=== PATIENT | female | born 1935 | race Caucasian/White ===

== ENCOUNTER 2021-01-06 07:24 | Emergency (ER) | payer OTHER ==
--- OUTSIDE RECORDS SUMMARY | 2021-01-06 07:27 | XMS REPORT | Continuity of Care Document ---
:1935 Author Organization [facility] t Address [address] [place] [address] Care Team Providers Name Role Phone Debora Nixon Attending Clinician Unavailable MD COLT L Attending Clinician Unavailable COLT Attending Clinician Unavailable Torrie BAGLEY, P Attending Clinician Debora Nixon Admitting Clinician Unavailable Physician, Primary or Family Admitting Clinician Unavailama GREGORY MD L Admitting Clinician Unavailable Payers Payer Name Policy Type Policy Number Effective Date Expiration Date S ource Problems Condition Condition Condition Status Onset Resolution Last Treating Co mments Source Name Details Category Date Date Treatment Clinician Date No known No known Disease Unive rs active active ity of problems problems [facility] Allergies, Adverse Reactions, Alerts Allergy Allergy Status Severity Reaction(s) Onset Inactive Treating Comm ents Source Name Type Date Date Clinician No Known DA Active U [facility] Allergie 08-28 Clear s 00:00: Bhagat 00 [facility] No Known DA Active U [facility] Allergie 08-28 Clear s 00:00: Bhagat [address] [place] [address] Codeine Propensi Active Anxiety 2015-02 Univer s ty to 0-20 ity of adverse 00:00: [place] reaction [address] [place] [address] No Known DA Active U [facility] Contrast 3-22 [place] All[facility]ie 00:[facility]: d [facility] No Known DA Active U [facility] Drug - [place] Allergie 00:00: d [facility] No Known DA Active U [facility] Food 05-06 [place] Allergie 00:00: d [facility] No Known DA Active U [facility] Other 05-06 [place] Allergie 00:00: d [facility] Center Social History Social Habit Start Date Stop Date Quantity Comments Source [facility] Status Start Date Stop Date Source Unknown [facility] Medications Ordered Filled Start Stop Current Ordering Indication Dosage Frequency Signature Comments Components Source Medication Medication Date Date Medication? Clinician (SIG) Name Name Sulfacetami Yes [id number] Apply to Univers de 9-19 area(s) ity of Sodium-Sulf 00:00: once daily [place] ur 00 as needed Medical (ROSANIL) (facial Branch 10-5 % redness). (w/w) cleanser metroNIDAZO Yes [id number] Apply to Univers LE 0.75 % 9-19 area(s) at ity of cream 00:00: bedtime. [address] triamcinolo Yes [id number] Apply to Univers ne 9-19 area(s) 2 ity of acetonide 00:00: (two) [place] 0.1 % cream 00 times Medical daily as Branch needed for Dermatitis /Rash or Itching. Sulfacetami Yes [id number] Apply to Univers de 9-19 area(s) ity of Sodium-Sulf 00:00: once daily [place] ur 00 as needed Medical (ROSANIL) (facial Branch 10-5 % redness). (w/w) cleanser metroNIDAZO Yes [id number] Apply to Univers LE 0.75 % 9-19 area(s) at ity of cream 00:00: bedtime. [address] triamcinolo Yes [id number] Apply to Univers ne 9-19 area(s) 2 ity of acetonide 00:00: (two) [place] 0.1 % cream 00 times Medical daily as Branch needed for Dermatitis /Rash or Itching. losartan 50 Yes 50mg Take 50 mg Univers mg tablet 2-13 by mouth. ity o f 22:05: [address] losartan 50 2019-0 Yes 50mg Take 50 mg Univers mg tablet 2-13 by mouth. ity o f 22:05: [address] losartan 50 2018-0 Yes 50mg Take 50 mg Univers mg tablet 2-13 by mouth. ity o f 22:05: [address] nitrofurant 2018-0 Yes 100mg Take 100 U nivers oin macro 2-13 mg by ity of 50 mg 22:05: mouth. [address] Branch nitrofurant Yes 100mg Take 100 U nivers oin macro 2-13 mg by ity of 50 mg 22:05: mouth. [place] capsule [address] [place] [address] nitrofurant 0 Yes 100mg Take 100 U nivers oin macro 2-13 mg by ity of 50 mg 22:05: mouth. [address] pravastatin 0 Yes Univer s 20 mg 2-04 ity of tablet 00:00: [address] pravastatin 2019-0 Yes Univer s 20 mg 2-04 ity of tablet 00:00: [address] pravastatin 2019-0 Yes Univer s 20 mg 2-04 ity of tablet 00:00: [address] ELIQUIS 5 2019-0 Yes Univers mg tablet 1-18 ity of 00:00: [address] ELIQUIS 5 2019-0 Yes Univers mg tablet 1-18 ity of 00:00: [address] ELIQUIS 5 2019-0 Yes Univers mg tablet 1-18 ity of 00:00: [address] Branch sulfamethox 2018- Yes Univer s azole-trime 2-21 ity of thoprim 00:00: [place] 800-160 mg 00 Medical per tablet Branch sulfamethox 2017- Yes Univer s azole-trime 2-21 ity of thoprim 00:00: [place] 800-160 mg 00 Medical per tablet Branch sulfamethox 2017- Yes Univer s azole-trime 2-21 ity of thoprim 00:00: [place] 800-160 mg 00 Medical per tablet Branch losartan 2017- Yes Univers 100 mg 2-15 ity of tablet 00:00: [address] Branch losartan 2017- Yes Univers 100 mg 2-15 ity of tablet 00:00: [place] [address] Medical Branch losartan 2017- Yes Univers 100 mg 2-15 ity of tablet 00:00: Medical Branch propranolol 2017-02 Yes Univer s 60 mg 24 hr 1-26 ity of capsule 00:00: Medical Branch propranolol 2017-02 Yes Univer s 60 mg 24 hr 1-26 ity of capsule 00:00: Medical Branch propranolol 2017-02 Yes Univer s 60 mg 24 hr 1-26 ity of capsule 00:00: Medical Branch conjugated 2017-02 Yes .5g Insert 0.5 U nivers estrogens 1-19 g into ity of 0.625 00:00: vagina. [place] mg/gram 00 Medical vaginal Branch cream conjugated 2017-02 Yes .5g Insert 0.5 U nivers estrogens 1-19 g into ity of 0.625 00:00: vagina. [place] mg/gram Medical vaginal Branch cream conjugated 2017-02 Yes .5g Insert 0.5 U nivers estrogens 1-19 g into ity of 0.625 00:00: vagina. [place] mg/gram Medical vaginal Branch cream Immunizations Ordered Immunization Filled Immunization Date Status Commen ts Source Name Name [place] COVID-19 Moderna COVID-19 2020-11-05 Completed Vaccine Vaccine 00:00:00 Moderna COVID-19 Moderna COVID-19 2020-04-27 Completed Vaccine Vaccine 00:00:00 Procedures This patient has no known procedures. Encounters Start End Encounter Admission Attending Care Care Encounter Source Date/Time Date/Time Type Type Clinicians Facility Department ID 2020-11-05 2020-11-05 Outpatient GCCOVIDV GCCOVIDV [id number] GCCOVID 00:00:00 00:00:00 V 2020-08-05 2020-08-08 Inpatient EM JOSSY NixonMN TELE 37 [facility] 18:09:00 16:30:00 Reji 0621 [facility] 2020-08-06 2020-08-06 Outpatient XAVIER Nixon LABO [id number] [facility] 01:09:00 01:09:00 Reji 0622 [facility] 2020-04-27 2020-04-27 Outpatient GCCOVIDV GCCOVIDV [id number] [facility] 00:00:00 00:00:00 V 2020-04-10 2020-04-10 Emergency [facility] [id number] [place] 00:00:00 00:00:[address] 2018-11-03 2018-11-03 Office Torrie [facility] [id number] 10:30:17 11:25:16 Visit Shawn Alvarado SPECIALTY [id number] [place] [id number] [place] [id number] 2018-11-03 2018-11-03 Office Torrie [facility] [id number] [facility] 10:30:17 11:25:16 Visit Shawn P SPECIALTY [id number] ity of [place] 4.2.7.2.686 Yung s [place] [id number] [place] [address] Branch 2018-10-16 2018-10-16 [place] Torrie [facility] [id number] [facility] 00:00:00 00:00:00 [facility] SPECIALTY [id number] ity of [place] [id number] [place] [id number] [address] Results Test Description Test Time Test Comments Results Result Comments Source AMMONIA 2020-08-05 20:21:00 Test Item Value Reference Range Interpretation Comme nts AMMONIA (test code = AMM) <10.0 MCMOL/L 11.0-32.0 L UA RFLX MICR CULT IF [id number] 18:23:00 Test Item Value Reference Range Interpretation Comments UA GLUCOSE DIPSTICK NORMAL mg/dl NORMAL (test code = DGLUU) UA BILIRUBIN DIPSTICK NEGATIVE mg/dL NEGATIVE (test code = BILU) UA KETONE DIPSTICK NEGATIVE mg/dl NEGATIVE (test code = KETU) UA SPECIFIC GRAVITY 1.020 1.000-1.030 (test code = SGU) UA BLOOD DIPSTICK 25 Ab/micL NEGATIVE A (test code = CYDNEY) Ab/micL UA PH DIPSTICK (test 6.5 5.0-9.0 code = GASPER) UA PROTEIN DIPSTICK NEGATIVE mg/dl NEGATIVE (test code = PROU) UA UROBILINIOGEN NORMAL mg/dl NORMAL DIPSTICK (test code = URO) UA NITRITE DIPSTICK POSITIVE NEGATIVE A (test code = WILLIE) UA LEUKOCYTE ESTERASE 500 Aura/micL NEGATIVE A DIPSTICK (test code = Aura/micL LEUU) UA WBC (test code = >100 WBC/HPF NONE A WBCU) UA SQUAMOUS CELLS >10 #/hpf (test code = SQU) UA CULTURE NEEDED? YES,WBC>10 & Culture Chk Criteria met, (test code = UACULT) EPI<=15 Criteria Uri ne Culture in-process. Indication for culture: RiskForSepsis-no oth srcSpecimen Description: CLEAN CATCHCoronavirus 2019 nCoV [id number] 18:22:00 Test Item Value Reference Range Interpretation Comments Coronavirus 2019 Negative NEGATIVE Negative re sults should be nCoV Bedside (test treated a s presumptive and code = ifinconsistent with [id number]) clinical signs and symptoms, or ne cessaryfor patient managem ent, should be tested with an alternativemole cular assay. Negative result s do not preclude [id number] tion and should not be u sed as the sole basis forp atient management deci sions. Negative result s should beconsidered in the context of a patient's recent exposures,histo ry, presence of clinical sig ns and symptoms consis tentwith COVID-19. DRUGS OF ABUSE SCREEN [id number] 18:20:00 Test Item Value Reference Interpretation Comments Range URN COCAINE (test NEGATIVE NEGATIVE Cocaine cu t-off code = COCAURN) concentratio n: 300 ng/mL URN CANNABINOIDS NEGATIVE NEGATIVE Cannabinoid s cut-off (test code = concentration: 50 ng/mL CANNABURN) URN AMPHETAMINE NEGATIVE NEGATIVE Amphetamine cut-off (test code = concentration: 1000 ng/mL AMPHETURN) URN BARBITURATE NEGATIVE NEGATIVE Barbiturate cut-off (test code = concentration: 200 ng/mL BARBITURN) URN BENZODIAZEPINE POSITIVE NEGATIVE A UNCONFIRM ED INITIAL (test code = SCREENING ONLY; SUGGEST BENZOURN) ADDITIONALCONFI RMATORY TESTING.Benzodi azepine cut-off concent ration: 200 ng/mL URN OPIATES (test NEGATIVE NEGATIVE Opiates cu t-off code = OPIATURN) concentrati on: 2000 ng/mL URN PHENCYCLIDINE NEGATIVE NEGATIVE Phencyclid ine(PCP) cut-off (PCP) (test code = concentra tion: 25 ng/ml PHENCURN) URN METHADONE (test NEGATIVE NEGATIVE Methadon e cut-off code = METHAURN) concentrati on: 300 ng/mL BASIC METABOLIC [id number] 18:19:00 Test Item Value Reference Range Interpretation Comments SODIUM (test code = NA) 141 mmol/l 134.0-147.0 N POTASSIUM (test code = K) 4.6 mmol/L 3.6-5.2 N CHLORIDE (test code = CL) 108 mmol/l 98.0-107.0 H CARBON DIOXIDE (test code = CO2) 27.7 mmol/l 21.0-33.0 N ANION GAP (test code = GAP) 9.9 0-20 N GLUCOSE (test code = GLU) 86 mg/dl 70.0-110.0 N BLOOD UREA NITROGEN (test code = 20 mg/dl 7.0-18.0 H BUN) CREATININE (test code = CREAT) 0.77 mg/dL 0.60-1.30 N GFR NON BLACK (test code = 76 mL/min 70-80 N GFRNONBLACK) GFR BLACK (test code = GFRBLACK) 91 mL/min 85-97 N CALCIUM (test code = CA) 8.0 mg/dl 8.0-10.5 N ABOUT 5 ML OF BLOOD IN EACH OF THE TWO BOTTLES.RIGHT HANDHEPATIC FUNCTION PANEL [id number] 18:19:00 Test Item Value Reference Range Interpretation Comments TOTAL PROTEIN (test code = PROT) 6.2 gm/dL 6.4-8.2 L ALBUMIN (test code = ALB) 2.9 gm/dl 3.2-4.7 L BILIRUBIN TOTAL (test code = BILT) 0.4 mg/dl 0.0-1.0 N BILIRUBIN DIRECT (test code = 0.1 mg/dl 0.0-0.3 N BILD) SGOT/AST (test code = AST) 20 Units/L 15-37 N SGPT/ALT (test code = ALT) 17 Units/L 12.0-78.0 N ALKALINE PHOSPHATASE TOTAL (test 90 Units/L 50.0-136.0 N code = ALKP) ABOUT 5 ML OF BLOOD IN EACH OF THE TWO BOTTLES.RIGHT HANDTHYROID STIMULATING [id number] 18:19:00 Test Item Value Reference Range Interpretation Comments THYROID STIMULATING 0.76 IU/ML 0.47-5.01 N Result i s in HORMONE (test code = Interna tional TSH) Units/millilite r ABOUT 5 ML OF BLOOD IN EACH OF THE TWO BOTTLES.RIGHT [id number] 18:19:00 Test Item Value Reference Range Interpretation Comments ACETAMINOPHEN (test <2.0 mcg/ml 10.0-30.0 L Result i s in code = ACET) Microgram per milliliter. ABOUT 5 ML OF BLOOD IN EACH OF THE TWO BOTTLES.RIGHT [id number] 18:19:00 Test Item Value Reference Range Interpretation Comments SALICYLATE (test code = TYRA) 0.7 mg/dl 2.8-20.0 L ABOUT 5 ML OF BLOOD IN EACH OF THE TWO BOTTLES.RIGHT [id number] 18:19:00 Test Item Value Reference Range Interpretation Comments ALCOHOL (test code 0.00 gm/dL 0.00-0.00 N ETHYL ALC OHOL VALUES - = ALC) INTERPRETATION: 0.050 GM/DL - NOT INT OXICATED 0.100 GM/DL - INTOXICATED 0.3 50-0.450 GM/DL - SEVEREL Y INTOXICATED 0.5 50 GM/DL- FATAL INTOXICAT ION ABOUT 5 ML OF BLOOD IN EACH OF THE TWO BOTTLES.RIGHT HANDUA RFLX MICR CULT IF [id number] 18:11:00 Test Item Value Reference Range Interpretation Comments UA GLUCOSE DIPSTICK (test NORMAL mg/dl NORMAL code = DGLUU) UA BILIRUBIN DIPSTICK NEGATIVE mg/dL NEGATIVE (test code = BILU) UA KETONE DIPSTICK (test NEGATIVE mg/dl NEGATIVE code = KETU) UA SPECIFIC GRAVITY (test 1.020 1.000-1.030 code = SGU) UA BLOOD DIPSTICK (test 25 Ab/micL Ab/micL NEGATIVE A code = CYDNEY) UA PH DIPSTICK (test code 6.5 5.0-9.0 = GASPER) UA PROTEIN DIPSTICK (test NEGATIVE mg/dl NEGATIVE code = PROU) UA UROBILINIOGEN DIPSTICK NORMAL mg/dl NORMAL (test code = URO) UA NITRITE DIPSTICK (test POSITIVE NEGATIVE A code = WILLIE) UA LEUKOCYTE ESTERASE 500 Aura/micL NEGATIVE A DIPSTICK (test code = Aura/micL LEUU) UA WBC (test code = WBCU) WBC/HPF NONE UA CULTURE NEEDED? (test Criteria Culture Chk code = UACULT) Indication for culture: RiskForSepsis-no oth srcSpecimen Description: CLEAN CATCHPROTHROMBIN [id number] 18:04:00 Test Item Value Reference Range Interpretation Comments PROTHROMBIN TIME 17.1 SECONDS 9.9-12.8 H PATIENT (test code = PTP) INTERNATIONAL NORMAL 1.4 0.89-1.14 H THE INR IS TO BE USED RATIO (test code = ONLY FOR MONITORING INR) ORAL ANTICOAGULANTTH ERAPY. THE FOLLOWING A RE SUGGESTED RANGE S FROM [facility]:DARIEN CATION INR VALUEPROPHYLAXI S OF VENOUS THROMBOS IS (ORTHOPEDIC LUIS STAN) 2.0 - 3.0PROP HYLAXIS OF VENOUS THROM BOSIS (OTHER THAN HIG H-RISK SURGERY) 2.0 - 3.0TRE ATMENT OF DEEP VEIN THROMBOSIS OR PULMONARY EMBOL ISM 2.0 - 3.0PREV ENTION OF SYSTEMIC EMB OLISM TISSUE HEART VA LVES 2.0 - 3.0 AC KARSTEN MYOCARDIAL INFA RCTION (TO PREVENT SYSTEMIC EMBOLI SM) 2.0 - 3.0 ACUTE MYOCARDIA L INFARCTION (TO PREVENT RECURRE NT INFARCT) 2.5 - 3.0 VALV ULAR HEART DISEASE 2.0 - 3.0 ATRIAL FIBRILATION 2.0 - 3.0BILEAFLET MECHANICAL VALV E IN AORTIC POSITION 2.0 - 3.0MECHAN ICAL PROSTHETIC VALV ES (HIGH RISK) 2.5 - 3.5PRESEN CE OF LUPUS ANTICOAGU LANT OR ANTIPHOSPHOLIP ID ANTIBODIES 2.5 - 3 .5 Specimen comments: .ABOUT 5 ML OF BLOOD IN EACH OF THE TWO BOTTLES.RIGHT HAND THROMBOPLASTIN TIME [id number] 18:04:00 Test Item Value Reference Range Interpretation Comments THROMBOPLASTIN TIME 30.20 SECONDS 25.86-36.07 N [place] d Lab PARTIAL (test code = Therape utic Range - PTT) APTT of 55.8-85 .4 secondscorrelat es with plasma heparin concentration o f 0.2-0.4 u/mL Ne w range effective - Specimen comments: .ABOUT 5 ML OF BLOOD IN EACH OF THE TWO BOTTLES.RIGHT HAND HEPATIC FUNCTION PANEL [id number] 18:02:00 Test Item Value Reference Range Interpretation Comments TOTAL PROTEIN (test code = PROT) gm/dL 6.4-8.2 ALBUMIN (test code = ALB) gm/dl 3.2-4.7 BILIRUBIN TOTAL (test code = BILT) mg/dl 0.0-1.0 BILIRUBIN DIRECT (test code = BILD) mg/dl 0.0-0.3 SGOT/AST (test code = AST) Units/L 15-37 SGPT/ALT (test code = ALT) Units/L 12.0-78.0 ALKALINE PHOSPHATASE TOTAL (test Units/L 50.0-136.0 code = ALKP) ABOUT 5 ML OF BLOOD IN EACH OF THE TWO BOTTLES.RIGHT HANDTHYROID STIMULATING [id number] 18:02:00 Test Item Value Reference Range Interpretation Comments THYROID STIMULATING HORMONE (test code IU/ML 0.47-5.01 = TSH) ABOUT 5 ML OF BLOOD IN EACH OF THE TWO BOTTLES.RIGHT [id number] 18:02:00 Test Item Value Reference Range Interpretation Comments ACETAMINOPHEN (test code = ACET) mcg/ml 10.0-30.0 ABOUT 5 ML OF BLOOD IN EACH OF THE TWO BOTTLES.RIGHT [id number] 18:02:00 Test Item Value Reference Range Interpretation Comments SALICYLATE (test code = TYRA) mg/dl 2.8-20.0 ABOUT 5 ML OF BLOOD IN EACH OF THE TWO BOTTLES.RIGHT [id number] 18:02:00 Test Item Value Reference Range Interpretation Comments ALCOHOL (test code = ALC) gm/dL 0.00-0.00 ABOUT 5 ML OF BLOOD IN EACH OF THE TWO BOTTLES.RIGHT HANDBASIC METABOLIC PANEL 2020-08-05 18:02:00 Test Item Value Reference Range Interpretation Comments SODIUM (test code = NA) 141 mmol/l 134.0-147.0 N POTASSIUM (test code = K) 4.6 mmol/L 3.6-5.2 N CHLORIDE (test code = CL) 108 mmol/l 98.0-107.0 H CARBON DIOXIDE (test code = CO2) 27.7 mmol/l 21.0-33.0 N ANION GAP (test code = GAP) 9.9 0-20 N GLUCOSE (test code = GLU) mg/dl 70.0-110.0 BLOOD UREA NITROGEN (test code = mg/dl 7.0-18.0 BUN) CREATININE (test code = CREAT) mg/dL 0.60-1.30 GFR NON BLACK (test code = mL/min 70-80 GFRNONBLACK) GFR BLACK (test code = GFRBLACK) mL/min 85-97 CALCIUM (test code = CA) mg/dl 8.0-10.5 ABOUT 5 ML OF BLOOD IN EACH OF THE TWO BOTTLES.RIGHT HANDCBC W/AUTO DIFF 2020-08-05 17:57:00 Test Item Value Reference Range Interpretation Comments WHITE BLOOD CELL (test code = 4.6 K/mm3 4.5-11.0 N WBC) RED BLOOD CELL (test code = 3.41 M/mm3 3.80-5.20 L RBC) HEMOGLOBIN (test code = HGB) 10.2 gm/dL 12.0-16.0 L HEMATOCRIT (test code = HCT) 32.8 % 36.0-48.0 L MEAN CELL VOLUME (test code = 96.2 UM3 82.0-99.0 N MCV) MEAN CELL HGB (test code = MCH) 29.9 UUG 25.5-32.5 N MEAN CELL HGB CONCETRATION 31.1 gm/dL 29.0-35.5 N (test code = MCHC) RED CELL DISTRIBUTION WIDTH 13.7 % 11.5-15.0 N (test code = RDW) RED CELL DISTRIBUTION WIDTH SD 47.9 fL 34.8-50.2 N (test code = RDW-SD) PLATELET COUNT (test code = 151 K/mm3 150-400 N PLT) MEAN PLATELET VOLUME (test code 12.1 fl 7.4-10.4 H = MPV) NEUTROPHIL % (test code = NT%) 73.9 % 49.0-76.0 N IMMATURE GRANULOCYTE % (test 0.2 % 0.0-0.4 N code = IG%) LYMPHOCYTE % (test code = LY%) 15.6 % 23.0-38.0 L MONOCYTE % (test code = MO%) 8.8 % 1.0-10.0 N EOSINOPHIL % (test code = EO%) 1.3 % 1.0-5.0 N BASOPHIL % (test code = BA%) 0.2 % 0.0-1.0 N NUCLEATED RBC % (test code = 0.0 % 0.0-0.1 N NRBC%) NEUTROPHIL # (test code = NT#) 3.4 K/mm3 2.4-6.3 N IMMATURE GRANULOCYTE # (test 0.01 x10 3/uL 0.00-0.07 N code = IG#) LYMPHOCYTE # (test code = LY#) 0.7 K/mm3 1.2-4.0 L MONOCYTE # (test code = MO#) 0.4 K/mm3 0.0-0.6 N EOSINOPHIL # (test code = EO#) 0.1 K/MM3 0.0-0.7 N BASOPHIL # (test code = BA#) 0.0 K/mm3 0.0-0.2 N NUCLEATED RBC # (test code = 0.00 X10 3uL 0.00-0.01 N NRBC#) ABOUT 5 ML OF BLOOD IN EACH OF THE TWO BOTTLES.RIGHT HAND- CT C-SPINE W/O CONT 2020-08-05 17:46:00 [facility] : 1935 Sex: F FAX: Eliel Lopez MD [place]: [address]: PRE Name: MARLEN WHITLOCK [facility]ly [facility] : 1935 Age/S: 85/F [address] [place] Unit: [id number] Loc: E.ERS2 [place], [place] Phys: [place] [address] Acct: [id number] Dis Date: Status: PRE ER PHONE #: [phone] Exam Date: 08/05/2020 1733 FAX #: [phone] Reason: eval for fracture EXAMS: CPT CODE: [id number] CT C-SPINE W/O CONT 72396 LOCATION: T18 EXAM: CT HEAD WITHOUT CONTRAST INDICATION: Altered Mental Status, trauma COMPARISON: CT head per formed October 03, 2007 TECHNIQUE: Multiple CT images of the head were obtained. No intravenous contrast was given. Up-to-date CT equipment and radiation dose reduction techniques were utilized. Automatic exposure control was utilized. FINDINGS: No intracranial hemorrhage or extra-axial collection is seen. No midline shift or mass effect is identified. There is no territorial infarct. Patchy hypodensities the white matter present. The ventricles, sulci and cisterns are normal. The calvarium is intact. Peripheral soft tissues are normal. Paranasal sinuses and mastoid air cells are clear. IMPRESSION:No intracranial hemorrhage or territorial infarct. No acute fracture. Chronic small vessel white matter ischemic changes. EXAM: CT CERVICAL SPINE WITHOUT CONTRAST INDICATION: Evaluate for fracture, trauma, Altered Mental Status COMPARISON: None. TECHNIQUE: Axially oriented CT images were obtained through the entire cervical spine, without contrast. Coronal and sagittal reformations are alsoprovided. Up-to-date CT equipment and radiation dose reduction techniques were utilized. Automatic exposure control was utilized. FINDINGS: No fracture, malalignment or other bony abnormality is identified. Prevertebral soft tissues are normal. Bilateral carotid bulb calcifications present. PAGE 1 SignedReport (CONTINUED) FAX: Eliel Lopez MD [place]: [facility]: PRE -- Name: MARLEN WHITLOCK [facility] : 1935 Age/S: 85/F [address] Unit: [id number] Loc: [address] Phys: [place] [address] Acct: [id number] Dis Date: Status: PRE ER PHONE #: [phone] Ex am Date: 08/05/2020 1733 FAX #: [phone] Reason: eval for fracture EXAMS: CPT CODE: [id number] CT C-SPINE W/O CONT 43514 <Continued> Visualized lung apices and upper mediastinum are normal. Limited views of the skull base, paranasal sinuses, and mastoid air cells are unremarkable. IMPRESSION: No fracture or dislocation of the cervical spine. at 1745 Reported and signed by: Jonh Acosta M.D. CC: Eliel Lopez MD Technologist: JOSE G NATION Trnscrd Dt/Tm: 08/05/2020 (6735) [email or web address] Orig Print D/T: S: 08/05/2020 (4225 PAGE 2 Signed Report- CT HEAD/BRAIN W/O CONT 2020-08-05 17:46:00 [facility] : 1935 Sex: F FAX: Eliel Lopez MD [place]: St: PRE Name: MARLEN WHITLOCK [facility] : 1935 Age/S: 85/F [address] [facility] [employer] Unit: [id number] Loc: E.ERS2 [place], [place]: [place] [address] Acct: [id number] Dis Date: Status: PRE ER PHONE #: [phone] Exam Date: 08/05/2020 1733 FAX #: [phone] Reason: Altered Mental Status EXAMS: CPT CODE: [id number] CT HEAD/BRAIN W/OCONT 82652 LOCATION: T18 EXAM: CT HEAD WITHOUT CONTRAST INDICATION: Altered Mental Status, trauma COMPARISON: CT head performed October 03, 2007 TECHNIQUE: Multiple CT images of the head were obtained. No intravenous contrast was given. Up-to-date CT equipment and radiation dose reduction techniques were utilized. Automatic exposure control was utilized. FINDINGS: No intracranial hemorrhage or extra-axial collection is seen. No midline shift or mass effect is identified. There is no territorial infarct. Patchy hypodensities the white matter present. The ventricles, sulci and cisterns are normal. The calvarium is intact. Peripheral soft tissues are normal. Paranasal sinuses and mastoid air cells are clear. IMPRESSION:No intracranial hemorrhage or territorial infarct. No acute fracture. Chronic small vessel white matter ischemic changes. EXAM: CT CERVICAL SPINE WITHOUT CONTRAST INDICATION: Evaluate for fracture, trauma, Altered Mental Status COMPARISON: None. TECHNIQUE: Axially oriented CT images were obtained through the entire cervical spine, without contrast. Coronal and sagittal reformations are alsoprovided. Up-to-date CT equipment and radiation dose reduction techniques were utilized. Automatic exposure control was utilized. FINDINGS: No fracture, malalignment or other bony abnormality is identified. Prevertebral soft tissues are normal. Bilateral carotid bulb calcifications present. PAGE 1 SignedReport (CONTINUED) FAX: Eliel Lopez MD [place]: [facility]: PRE -- Name: MARLEN WHITLOCK [facility] : 1935 Age/S: 85/F [address] [facility] Unit: [id number] Loc: [address] Phys: [place] [address] Acct: [id number] Dis Date: Status: PRE ER PHONE #: [phone] Ex am Date: 08/05/2020 1733 FAX #: [phone] Reason: Altered Mental Status EXAMS: CPT CODE: [id number] CT HEAD/BRAIN W/O CONT 35094 <Continued> Visualized lung apices and upper mediastinum are normal. Limited views of the skull base, paranasal sinuses, and mastoid air cells are unremarkable. IMPRESSION: No fracture or dislocation of the cervical spine. at 0104 Reported and signed by: Jonh Acosta M.D. CC: Eliel Lopez MD Technologist: JOSE G NATION Trnscrd Dt/Tm: 08/05/2020 (3006) [email or web address] Orig Print D/T: S: 08/05/2020 (7427 PAGE 2 Signed Report- XR CHEST 1 [id number] 17:43:00[facility] : 1935 Sex: F FAX: Eliel Lopez MD [place]: St: ADM Name: MARLEN WHITLOCK [facility] : 1935 Age/S: 85/F [address] [facility] Unit #: [id number] Loc: [place], [place] Phys: [place] [id number] Acct: [id number] Dis Date: Status: ADM IN PHONE #: [phone] Exam Date: FAX #: [phone] Reason: Altered Mental Status EXAMS: CPT CODE: [id number] XR CHEST 1 V 53603 AP VIEW OF THE CHEST LOCATION: R16 CLINICAL HISTORY: Altered mental status. COMPARISON: No previo us exam available. FINDINGS: The cardiomediastinal shadow is within normal limits. The lungs are grossly clear. No appreciable pleural fluids. Degenerative bony changes are noted. No acute bony abnormality is found. IMPRESSION: No radiographic evidence of acute cardiopulmonary disease process. at 4341 Reported and signed by: Mari Virk M.D. CC: Eliel Lopez MD Technologist: BESSIE BORREGO [facility] Date/Time/By: 08/05/2020 (5453) : By: [email or web address] PAGE 1 Signed Report FAX: Eliel Lopez MD [place]: St: ADM Name: MARLEN WHITLOCK [facility] : 1935 Age/S: 85/F [address] [facility] Unit #: [id number] Loc: [place], [place]: [place] [id number] Acct: [id number] Dis Date: Status: ADM IN PHONE #: [phone] Exam Date: 08/05/2020 172 FAX #: [phone] R renetta: Altered Mental Status EXAMS: CPT CODE: [id number] XR CHEST 1 V 63693 <Continued> Orig Print D/T: S: 08/05/2020 (2158) PAGE 2 Signed [id number] (COVID-19) RNA [Presence] in Respiratory specimen by KRISTEN with probe [id number] 17:52:20 Test Item Value Reference Range Interpretation Comments SARS-CoV-2 (COVID-19) RNA Not detected Not-Detected [Presence] in Respiratory specimen by KRISTEN with probe detection (test code = 26237-7) BASIC METABOLIC [id number] 20:03:00 Test Item Value Reference Range Interpretation Comments SODIUM (test code = 140 mmol/l 134.0-147.0 N NA) POTASSIUM (test code = 4.3 mmol/L 3.6-5.2 N FROM REDRAW.SAMPLE K) SLIGHTLY HEMOLY SED. CHLORIDE (test code = 105 mmol/l 98.0-107.0 N CL) CARBON DIOXIDE (test 29.0 mmol/l 21.0-33.0 N code = CO2) ANION GAP (test code = 10.3 0-20 N GAP) GLUCOSE (test code = 99 mg/dl 70.0-110.0 N GLU) BLOOD UREA NITROGEN 17 mg/dl 7.0-18.0 N (test code = BUN) CREATININE (test code 0.80 mg/dL 0.60-1.30 N = CREAT) GFR NON BLACK (test 73 mL/min 70-80 N code = GFRNONBLACK) GFR BLACK (test code = 88 mL/min 85-97 N GFRBLACK) CALCIUM (test code = 9.0 mg/dl 8.0-10.5 N CA) SAMPLE GROSSLY HEMOLYSED---- CALLED YESICA AT 1927.CBC W/AUTO [id number] 19:26:00 Test Item Value Reference Range Interpretation Comments WHITE BLOOD CELL (test code = 4.9 K/mm3 4.5-11.0 N WBC) RED BLOOD CELL (test code = 4.09 M/mm3 3.80-5.20 N RBC) HEMOGLOBIN (test code = HGB) 12.2 gm/dL 12.0-16.0 N HEMATOCRIT (test code = HCT) 41.3 % 36.0-48.0 N MEAN CELL VOLUME (test code = 101.0 UM3 82.0-99.0 H MCV) MEAN CELL HGB (test code = MCH) 29.8 UUG 25.5-32.5 N MEAN CELL HGB CONCETRATION 29.5 gm/dL 29.0-35.5 N (test code = MCHC) RED CELL DISTRIBUTION WIDTH 17.2 % 11.5-15.0 H (test code = RDW) RED CELL DISTRIBUTION WIDTH SD 54.4 fL 34.8-50.2 H (test code = RDW-SD) PLATELET COUNT (test code = 156 K/mm3 150-400 N PLT) MEAN PLATELET VOLUME (test code 12.2 fl 7.4-10.4 H = MPV) NEUTROPHIL % (test code = NT%) 60.8 % 49.0-76.0 N IMMATURE GRANULOCYTE % (test 0.2 % 0.0-0.4 N code = IG%) LYMPHOCYTE % (test code = LY%) 26.3 % 23.0-38.0 N MONOCYTE % (test code = MO%) 9.0 % 1.0-10.0 N EOSINOPHIL % (test code = EO%) 3.1 % 1.0-5.0 N BASOPHIL % (test code = BA%) 0.6 % 0.0-1.0 N NEUTROPHIL # (test code = NT#) 3.0 K/mm3 2.4-6.3 N IMMATURE GRANULOCYTE # (test 0.01 x10 3/uL 0.00-0.07 N code = IG#) LYMPHOCYTE # (test code = LY#) 1.3 K/mm3 1.2-4.0 N MONOCYTE # (test code = MO#) 0.4 K/mm3 0.0-0.6 N EOSINOPHIL # (test code = EO#) 0.2 K/MM3 0.0-0.7 N BASOPHIL # (test code = BA#) 0.0 K/mm3 0.0-0.2 N
--- NOTE | 2021-01-06 08:30 | RAD REPORT ---
EXAM DESCRIPTION: CT - CTHCSPWOC - 01/06/2021 7:49 am CLINICAL HISTORY: Trauma, head and neck injury. Reported fall from standing;Pain COMPARISON: No comparisons TECHNIQUE: Axial 5 mm thick images of the head were obtained. Axial 2 mm thick images of the cervical spine were obtained with sagittal and coronal reconstruction images generated and reviewed. All CT scans are performed using dose optimization technique as appropriate and may include automated exposure control or mA/KV adjustment according to patient size. FINDINGS: CT HEAD WITHOUT CONTRAST: No acute hemorrhage, hydrocephalus or extra-axial collection is identified.Moderate generalized brain atrophy is present with moderate periventricular and deep white matter chronic microvascular ischemi c changes.No areas of brain edema or midline shift. The paranasal sinuses and mastoids are clear.The calvarium is intact. CT CERVICAL SPINE WITHOUT CONTRAST: No fracture or subluxation.Moderate lower cervical degenerative changes.No prevertebral soft tissues swelling is identified. IMPRESSION: No acute intracranial or cervical spine findings.
--- NOTE | 2021-01-06 08:53 | RAD REPORT ---
EXAM DESCRIPTION: RAD - Hip Right 2 View - 01/06/2021 8:13 am CLINICAL HISTORY: PAIN COMPARISON: No comparisons FINDINGS: Mild arthritis affects the right hip. No acute fracture or dislocation seen.
--- NOTE | 2021-01-06 08:55 | RAD REPORT ---
EXAM DESCRIPTION: RAD - Elbow Right 3 View - 01/06/2021 8:12 am CLINICAL HISTORY: PAIN COMPARISON: No comparisons FINDINGS: No acute fracture or dislocation is seen. No aggressive marrow lesion is present. If pain persists or progresses, recommend CT or MR imaging of the elbow.
--- NOTE | 2021-01-06 09:03 | ER ---
Nurse's Notes [facility] Name: Hoa Rivers Age: 85 yrs Sex: Female : 1935 Arrival Date: 01/06/2021 Time: 07:30 Bed 15 Private MD: Diagnosis: Fall from standing, contusion right elbow and right hip Presentation: 01/06 07:37 Chief complaint: EMS states: fall X 30 minutes ago, pt has hx of dementia does not iw remember falling, no reported LOC from [place] staff, pt is alert and oriented to normal mentation, pt reports pain to right arm/elbow and right leg. Coronavirus screen: At this time, the client does not indicate any symptoms associated with coronavirus-19. Ebola Screen: Patient negative for fever greater than or equal to 101.5 degrees Fahrenheit, and additional compatible Ebola Virus Disease symptoms Patient denies exposure to infectious person. Patient denies travel to an Ebola-affected area in the 21 days before illness onset. No symptoms or risks identified at this time. Initial Sepsis Screen: Does the patient meet any 2 criteria? No. Patient's initial sepsis screen is negative. Does the patient have a suspected source of infection? No. Patient's initial sepsis screen is negative. Risk Assessment: Do you want to hurt yourself or someone else? Patient reports no desire to harm self or others. Onset of symptoms was January 06, 2021. 07:37 Method Of Arrival: EMS: [facility] iw 07:37 Acuity: WILL 4 iw Historical: - Allergies: 07:39 No Known Allergies; iw - Home Meds: 07:39 divalproex 500 mg oral TbEC 1 tab 2 times per day [Active]; donepezil 5 mg oral tab 1 iw tab once daily [Active]; Eliquis 5 mg oral tab 1 tab 2 times per day [Active]; hydrochlorothiazide 25 mg Oral tab once daily [Active]; losartan 25 mg oral tab 1 tab once daily [Active]; memantine 5 mg oral tab 1 tab 2 times per day [Active]; propranolol 60 mg Oral tab daily [Active]; risperidone 0.25 mg oral tab 1 tabs 2 times per day [Active]; - PMHx: 07:39 Hypertensive disorder; Dementia; iw Vital Signs: 07:37 BP 112 / 55; Pulse 85; Resp 16; Temp 98.0; Pulse Ox 97% on R/A; iw ED Course: 07:30 Patient arrived in ED. iw 07:30 Jayden Young MD is Attending Physician. kdr 07:38 Triage completed. iw 07:42 Arm band placed on. iw 07:43 Patient moved to radiology via stretcher. sl2 07:49 CT Head C Spine In Process Unspecified. EDMS 08:06 Elbow Right 3 View XRAY In Process Unspecified. EDMS 08:06 Hip Right 2 View XRAY In Process Unspecified. EDMS 08:15 Eliane Lyman, RN is Primary Nurse. sl2 08:16 Patient moved back from radiology. sl2 Administered Medications: No medications were administered Outcome: 09:02 Discharge ordered by . kdr 09:57 Patient left the ED. 5 Signatures: Dispatcher [employer] EDMS Jayden Young MD MD kdr Nidia York RN RN iw Eliane Lyman, RN RN 2 Tali Ortiz RN RN [facility]
--- NOTE | 2021-01-06 09:03 | EDPHYS ---
Physician Documentation [facility] Name: Hoa Rivers Age: 85 yrs Sex: Female : 1935 Arrival Date: 01/06/2021 Time: 07:30 Bed 15 Private MD: ED Physician Jayden Young HPI: 01/06 07:41 This 85 yrs old Female presents to ER via EMS with complaints of Fall Injury. kdr 07:41 Details of fall: The patient fell from an upright position. Onset: The symptoms/episode kdr began/occurred suddenly, just prior to arrival. Associated injuries: The patient sustained Right elbow and right hip. Severity of symptoms: At their worst the symptoms were mild, in the emergency department the symptoms are unchanged. It is unknown whether or not the patient has had similar symptoms in the past. It is unknown whether or not the patient has recently seen a physician. According to the patient's son, the patient has difficulty transitioning from sitting to standing into other positions. This morning apparently when she was getting out of bed she fell to the floor. It is unknown if she had LOC however it is not reported that she definitively did. She is currently only complains of right elbow and right hip pain upon examination.. Historical: - Allergies: 07:39 No Known Allergies; iw - Home Meds: 07:39 divalproex 500 mg oral TbEC 1 tab 2 times per day [Active]; donepezil 5 mg oral tab 1 iw tab once daily [Active]; Eliquis 5 mg oral tab 1 tab 2 times per day [Active]; hydrochlorothiazide 25 mg Oral tab once daily [Active]; losartan 25 mg oral tab 1 tab once daily [Active]; memantine 5 mg oral tab 1 tab 2 times per day [Active]; propranolol 60 mg Oral tab daily [Active]; risperidone 0.25 mg oral tab 1 tabs 2 times per day [Active]; - PMHx: 07:39 Hypertensive disorder; Dementia; iw ROS: 07:41 Constitutional: Negative for fever, chills, and weight loss, -the history is from the kdr son as the patient has dementia Eyes: Negative for injury, pain, redness, and discharge, Neck: Negative for injury, pain, and swelling, Cardiovascular: Negative for chest pain, palpitations, and edema. 07:41 Unable to obtain ROS due to baseline dementia. Exam: 07:41 Constitutional: This is a well developed, well nourished patient who is awake, alert, kdr and in no acute distress. Head/Face: Normocephalic, atraumatic. Eyes: Pupils equal round and reactive to light, extra-ocular motions intact. Lids and lashes normal. Conjunctiva and sclera are non-icteric and not injected. Cornea within normal limits. Periorbital areas with no swelling, redness, or edema. Neck: Trachea midline, no thyromegaly or masses palpated, and no cervical lymphadenopathy. Supple, full range of motion without nuchal rigidity, or vertebral point tenderness. No Meningismus. Chest/axilla: Normal chest wall appearance and motion. Nontender with no deformity. No lesions are appreciated. Cardiovascular: Regular rate and rhythm with a normal S1 and S2. No gallops, murmurs, or rubs. Normal PMI, no JVD. No pulse deficits. Respiratory: Lungs have equal breath sounds bilaterally, clear to auscultation and percussion. No rales, rhonchi or wheezes noted. No increased work of breathing, no retractions or nasal flaring. Abdomen/GI: Soft, non-tender, with normal bowel sounds. No distension or tympany. No guarding or rebound. No evidence of tenderness throughout. Back: No spinal tenderness. No costovertebral tenderness. Full range of motion. 07:41 Musculoskeletal/extremity: Patient has minimal complaint during the exam of the right elbow and right hip. I was able to range of motion both limbs with only minimal discomfort. There is a contusion and ecchymosis on the lateral aspect of the right elbow. Otherwise the exam is unremarkable. She is neurovascularly intact in both extremities. Vital Signs: 07:37 BP 112 / 55; Pulse 85; Resp 16; Temp 98.0; Pulse Ox 97% on R/A; iw MDM: 07:41 Data reviewed: vital signs, nurses notes, radiologic studies. Counseling: I had a kdr detailed discussion with the patient and/or guardian regarding: the historical points, exam findings, and any diagnostic results supporting the discharge/admit diagnosis, radiology results, the need for outpatient follow up. 09:02 Patient medically screened. kdr 09:03 ED course: Patient is resting comfortably in bed without any apparent discomfort. The kdr patient's son was present during the initial portion of the exam and return of results. He was given the result of the CT head and neck. Patient otherwise appears to be in stable condition.. 01/06 07:39 Order name: CT Head C Spine; Complete Time: 08:39 kdr 01/06 07:39 Order name: Elbow Right 3 View XRAY; Complete Time: 09:00 kdr 01/06 07:39 Order name: Hip Right 2 View XRAY; Complete Time: 09:00 kdr Administered Medications: No medications were administered Disposition Summary: 01/06/21 09:02 Discharge Ordered Location: Home kdr Problem: new kdr Symptoms: have improved kdr Condition: Stable kdr Diagnosis - Fall from standing, contusion right elbow and right hip kdr Followup: kdr - With: Private Physician - When: 2 - 3 days - Reason: If symptoms return, Further diagnostic work-up, Recheck today's complaints, Continuance of care, Re-evaluation by your physician Discharge Instructions: - Discharge Summary Sheet kdr - Contusion, [id number] kdr - Hip Pain kdr - Head Injury, Adult, [id number] kdr Forms: - Medication Reconciliation Form kdr - Thank You Letter kdr Signatures: Dispatcher [employer] Jayden Ayon MD MD kdr Nidia York RN RN iw
[2021-01-06 10:01] VITALS: BP 112/55; TEMP 98; O2SAT 97
== END 2021-01-06 09:57 | disposition home or self-care (01) ==
LOC: ER 07:24
DX: S50.01XA Contusion of right elbow, initial encounter (principal); W18.30XA Fall on same level, unspecified, initial encounter; I10 Essential (primary) hypertension; F03.90 Unspecified dementia, unspecified severity, without behavioral disturbance, psychotic disturbance, mood disturbance, and anxiety; Z79.01 Long term (current) use of anticoagulants
CPT/HCPCS: 70450; 72125; 99283

== ENCOUNTER 2021-01-13 03:39 | Emergency (ER) | payer OTHER ==
--- OUTSIDE RECORDS SUMMARY | 2021-01-13 03:42 | XMS REPORT | Continuity of Care Document ---
:1935 Author Organization [facility] t Address [address] [place] [address] Care Team Providers Name Role Phone Debora Nixon Attending Clinician Unavailable MD Di GREGORY Attending Clinician Unavailable COLT Attending Clinician Unavailable [...] rs active active ity of problems problems [facility] Allergies, Adverse Reactions, Alerts Allergy Allergy Status Severity Reaction(s) Onset Inactive Treating Comm ents Source Name Type Date Date Clinician No Known DA Active U [facility] Allergie 08-28 Clear s 00:00: Bhagat 00 [facility] No Known DA Active U [facility] Allergie 08-28 Clear s 00:00: Bhagat [address] [place] [address] Codeine Propensi Active Anxiety 2015-02 Univer s ty to 0-20 ity of adverse 00:00: [place] reaction [address] [place] [address] No Known DA Active U 2008-0 [facility] Contrast 3-22 [place] All[facility]ie 00:[facility]: [facility] No Known DA Active U [facility] Drug 05-06 [place] Allergie 00:00: d [facility] No Known DA Active U [facility] Food 05-06 [place] Allergie 00:00: d [facility] No Known DA Active U [facility] Other 05-06 [place] Allergie 00:00: d [facility] Social History Social Habit Start Date Stop Date Quantity Comments Source Sex Assigned [facility] Smoking Status Start Date Stop Date Source Unknown [facility] Medications Ordered Filled Start Stop Current Ordering Indication Dosage Frequency Signature Comments Components Source Medication Medication Date Date Medication? Clinician (SIG) Name Name Sulfacetami Yes [id number] Apply to Univers de 9-19 area(s) ity of Sodium-Sulf 00:00: once daily [place] ur 00 as needed Medical (ROSANIL) (facial Branch 10-5 % redness). (w/w) cleanser metroNIDAZO Yes [id number] Apply to Univers LE 0.75 % 9-19 area(s) at ity of cream 00:00: bedtime. [address] triamcinolo Yes [id number] Apply to Univers ne 9-19 area(s) 2 ity of acetonide 00:00: (two) [place] 0.1 % cream 00 times Medical daily as Branch needed for Dermatitis /Rash or Itching. Sulfacetami Yes [id number] Apply to Univers de 9-19 area(s) ity of Sodium-Sulf 00:00: once daily [place] ur 00 as needed Medical (ROSANIL) (facial Branch 10-5 % redness). (w/w) cleanser metroNIDAZO Yes [id number] Apply to Univers LE 0.75 % 9-19 area(s) at ity of cream 00:00: bedtime. [address] triamcinolo Yes [id number] Apply to Univers ne 9-19 area(s) 2 ity of acetonide 00:00: (two) [place] 0.1 % cream 00 times Medical daily as Branch needed for Dermatitis /Rash or Itching. losartan 50 Yes 50mg Take 50 mg Univers mg tablet 2-13 by mouth. ity o f 22:05: [address] losartan 50 Yes 50mg Take 50 mg Univers mg tablet 2-13 by mouth. ity o f 22:05: [address] losartan 50 2018-0 Yes 50mg Take 50 mg Univers mg tablet 2-13 by mouth. ity o f 22:05: [address] nitrofurant 2018-0 Yes 100mg Take 100 U nivers oin macro 2-13 mg by ity of 50 mg 22:05: mouth. [address] nitrofurant Yes 100mg Take 100 U nivers oin macro 2-13 mg by ity of 50 mg 22:05: mouth. [place] capsule [address] [place] [address] nitrofurant Yes 100mg Take 100 U nivers oin macro 2-13 mg by ity of 50 mg 22:05: mouth. [address] pravastatin 0 Yes Univer s 20 mg 2-04 ity of tablet 00:00: [address] pravastatin 2019-0 Yes Univer s 20 mg 2-04 ity of tablet 00:00: [address] pravastatin 2019-0 Yes Univer s 20 mg 2-04 ity of tablet 00:00: [address] ELIQUIS 5 2018-0 Yes Univers mg tablet 1-18 ity of 00:00: [address] ELIQUIS 5 2019-0 Yes Univers mg tablet 1-18 ity of 00:00: [address] ELIQUIS 5 2019-0 Yes Univers mg tablet 1-18 ity of 00:00: [address] Branch sulfamethox 2018- Yes Univer s azole-trime 2-21 ity of thoprim 00:00: [place] 800-160 mg 00 Medical per tablet Branch sulfamethox 2017- Yes Univer s azole-trime 2-21 ity of thoprim 00:00: [place] 800-160 mg 00 Medical per tablet Branch sulfamethox 2017- Yes Univer s azole-trime 2-21 ity of thoprim 00:00: [place] 800-160 mg 00 Medical per tablet Branch losartan 2017- Yes Univers 100 mg 2-15 ity of tablet 00:00: [address] Branch losartan 2017- Yes Univers 100 mg 2-15 ity of tablet 00:00: [place] [address] Medical Branch losartan 2017- Yes Univers 100 [...] Department ID 2020-11-05 2020-11-05 Outpatient GCCOVIDV GCCOVIDV [id number] GCCOVID 00:00:00 00:00:00 V 2020-08-05 2020-08-08 Inpatient EM JOSSY NixonMN TELE 37 [facility] 18:09:00 16:30:[address] [facility] 2020-08-06 2020-08-06 Outpatient XAVIER Nixon LABO [id number] [facility] 01:09:00 01:09:00 Reji 0622 [facility] 2020-04-27 2020-04-27 Outpatient GCCOVIDV GCCOVIDV [id number] GCCOVID 00:00:00 00:00:00 V 2020-04-10 2020-04-10 Emergency COLT [facility] [id number] [place] 00:00:00 00:00:[address] 2018-11-03 2018-11-03 Office Torrie [facility] [id number] [facility] 10:30:17 11:25:16 Visit [facility] SPECIALTY [id number] ity of [place] 4.2.7.2.686 [place] [id number] [address] 2018-11-03 2018-11-03 [facility] [id number] 10:30:17 11:25:16 Visit [facility] SPECIALTY [id number] [place] [id number] [place] [id number] [facility] 2018-10-16 2018-10-16 [place] [facility] [id number] [facility] 00:00:00 00:00:00 Shawn P SPECIALTY [id number] ity of [place] 4.2.7.2.686 [place] [id number] [address] Results Test Description Test Time Test Comments Results Result Comments Source [facility] 2020-08-05 20:21:00 Test Item Value Reference Range Interpretation Comme nts AMMONIA (test code = AMM) <10.0 MCMOL/L 11.0-32.0 L UA RFLX MICR CULT IF [id number] 18:23:00 Test Item Value Reference Range Interpretation [...] oth srcSpecimen Description: CLEAN CATCHCoronavirus 2019 nCoV [id number] 18:22:00 Test Item Value Reference Range Interpretation Comments Coronavirus 2019 Negative NEGATIVE Negative re sults should be nCoV Bedside (test treated a s presumptive and code = ifinconsistent with [id number]) clinical signs and symptoms, or ne cessaryfor patient managem ent, should be tested with an alternativemole cular assay. Negative result s do not preclude ABWH-[id number]-5jgqgx tion and should not be u sed as the sole basis forp atient management deci sions. Negative result s should beconsidered in the context of a patient's recent exposures,histo ry, presence of clinical sig ns and symptoms consis tentwith COVID-19. DRUGS OF ABUSE SCREEN [id number] 18:20:00 Test Item Value Reference Interpretation Comments [...] [place]) concentrati on: 300 ng/mL BASIC METABOLIC [id number] 18:19:00 Test Item Value Reference Range Interpretation [...] OF THE TWO BOTTLES.RIGHT HANDHEPATIC FUNCTION PANEL [id number] 18:19:00 Test Item Value Reference Range Interpretation [...] EACH OF THE TWO BOTTLES.RIGHT HANDTHYROID STIMULATING [id number] 18:19:00 Test Item Value Reference Range Interpretation Comments THYROID STIMULATING 0.76 IU/ML 0.47-5.01 N Result i s in HORMONE (test code = Interna tional TSH) Units/millilite r ABOUT 5 ML OF BLOOD IN EACH OF THE TWO BOTTLES.RIGHT [id number] 18:19:00 Test Item Value Reference Range Interpretation Comments ACETAMINOPHEN (test <2.0 mcg/ml 10.0-30.0 L Result i s in code = ACET) Microgram per milliliter. ABOUT 5 ML OF BLOOD IN EACH OF THE TWO BOTTLES.RIGHT [id number] 18:19:00 Test Item Value Reference Range Interpretation Comments SALICYLATE (test code = TYRA) 0.7 mg/dl 2.8-20.0 L ABOUT 5 ML OF BLOOD IN EACH OF THE TWO BOTTLES.RIGHT [id number] 18:19:00 Test Item Value Reference Range Interpretation Comments ALCOHOL (test code 0.00 gm/dL 0.00-0.00 N ETHYL ALC OHOL VALUES - = ALC) INTERPRETATION: 0.050 GM/DL - NOT INT OXICATED 0.100 GM/DL - INTOXICATED 0.3 50-0.450 GM/DL - SEVEREL Y INTOXICATED 0.5 50 GM/DL- FATAL INTOXICAT ION ABOUT 5 ML OF BLOOD IN EACH OF THE TWO BOTTLES.RIGHT HANDUA RFLX MICR CULT IF [id number] 18:11:00 Test Item Value Reference Range Interpretation [...] culture: RiskForSepsis-no oth srcSpecimen Description: CLEAN CATCHPROTHROMBIN [id number] 18:04:00 Test Item Value Reference Range Interpretation Comments PROTHROMBIN TIME 17.1 SECONDS 9.9-12.8 H PATIENT (test code = PTP) INTERNATIONAL NORMAL 1.4 0.89-1.14 H THE INR IS TO BE USED RATIO (test code = ONLY FOR MONITORING INR) ORAL ANTICOAGULANTTH ERAPY. THE FOLLOWING A RE SUGGESTED RANGE S FROM [facility]:DARIEN CATION INR VALUEPROPHYLAXI [...] OF THE TWO BOTTLES.RIGHT HAND THROMBOPLASTIN TIME [id number] 18:04:00 Test Item Value Reference Range Interpretation Comments THROMBOPLASTIN TIME 30.20 SECONDS 25.86-36.07 N [place] d Lab PARTIAL (test code = Therape utic Range - PTT) APTT of 55.8-85 .4 secondscorrelat es with plasma heparin concentration o f 0.2-0.4 u/mL Ne w range effective - Specimen comments: .ABOUT 5 ML OF BLOOD IN EACH OF THE TWO BOTTLES.RIGHT HAND HEPATIC FUNCTION PANEL [id number] 18:02:00 Test Item Value Reference Range Interpretation [...] EACH OF THE TWO BOTTLES.RIGHT HANDTHYROID STIMULATING [id number] 18:02:00 Test Item Value Reference Range Interpretation Comments THYROID STIMULATING HORMONE (test code IU/ML 0.47-5.01 = TSH) ABOUT 5 ML OF BLOOD IN EACH OF THE TWO BOTTLES.RIGHT [id number] 18:02:00 Test Item Value Reference Range Interpretation Comments ACETAMINOPHEN (test code = ACET) mcg/ml 10.0-30.0 ABOUT 5 ML OF BLOOD IN EACH OF THE TWO BOTTLES.RIGHT [id number] 18:02:00 Test Item Value Reference Range Interpretation Comments SALICYLATE (test code = TYRA) mg/dl 2.8-20.0 ABOUT 5 ML OF BLOOD IN EACH OF THE TWO BOTTLES.RIGHT [id number] 18:02:00 Test Item Value Reference Range Interpretation [...] HAND- CT C-SPINE W/O CONT 2020-08-05 17:46:00 [facility] 1935 Sex: F FAX: Eliel Lopez MD [place]: [address]: PRE Name: MARLEN WHITLOCK [facility] : 1935 Age/S: 85/F [address] Unit: [id number] Loc: [address]ERS[address] [place], [place] Phys: [place] [address] Acct: [id number] Dis Date: Status: PRE ER PHONE #: [phone] Exam Date: 08/05/2020 1733 FAX #: [phone] Reason: eval for fracture EXAMS: CPT CODE: [id number] CT C-SPINE W/O CONT 80860 LOCATION: T18 EXAM: CT HEAD WITHOUT CONTRAST [...] 1 SignedReport (CONTINUED) FAX: Eliel Lopez MD [place]: EMSt: PRE -- Name: MARLEN WHITLOCK [facility] : 1935 Age/S: 85/F [address] Unit: [id number] Loc: [address] Phys: [place] [address] Acct: [id number] Dis Date: Status: PRE ER PHONE #: [phone] Ex am Date: 08/05/2020 1733 FAX #: [phone] Reason: eval for fracture EXAMS: CPT CODE: [id number] CT C-SPINE W/O CONT 10882 <Continued> Visualized lung apices and upper mediastinum are normal. Limited views of the skull base, paranasal sinuses, and mastoid air cells are unremarkable. IMPRESSION: No fracture or dislocation of the cervical spine. at 174 Reported and signed by: Jonh Acosta M.D. CC: Eliel Lopez MD Technologist: JOSE G NATION Trnscrd Dt/Tm: 08/05/2020 (9171) [email or web address] Orig Print D/T: S: 08/05/2020 (2729 PAGE 2 Signed Report- CT HEAD/BRAIN W/O CONT 2020-08-05 17:46:00 [facility] : 1935 Sex: F FAX: Eliel Lopez MD [place]: St: PRE Name: MARLEN WHITLOCK [facility] : 1935 Age/S: 85/F [address] [facility] Unit: [id number] Loc: E[address]ERS[address] [place], [place]: [place] [address] Acct: [id number] Dis Date: Status: PRE ER PHONE #: [phone] Exam Date: 08/05/2020 1733 FAX #: [phone] Reason: Altered Mental Status EXAMS: CPT CODE: [id number] CT HEAD/BRAIN W/OCONT 27651 LOCATION: T18 EXAM: CT HEAD WITHOUT CONTRAST [...] 1 SignedReport (CONTINUED) FAX: Eliel Lopez MD [place]: EMSt: PRE -- Name: MARLEN WHITLOCK [facility] : 1935 Age/S: 85/F [address] [facility] Unit: [id number] Loc: [address] Phys: [place] [address] Acct: [id number] Dis Date: Status: PRE ER PHONE #: [phone] Ex am Date: 08/05/2020 1733 FAX #: [phone] Reason: Altered Mental Status EXAMS: CPT CODE: [id number] CT HEAD/BRAIN W/O CONT 29164 <Continued> Visualized lung apices and upper mediastinum are normal. Limited views of the skull base, paranasal sinuses, and mastoid air cells are unremarkable. IMPRESSION: No fracture or dislocation of the cervical spine. at 4881 Reported and signed by: Jonh Acosta M.D. CC: Eliel Lopez MD Technologist: JOSE G NATION Trnscrd Dt/Tm: 08/05/2020 (7255) [email or web address] Orig Print D/T: S: 08/05/2020 (6213 PAGE 2 Signed Report- XR CHEST 1 [id number] 17:43:00[facility] : 1935 Sex: F FAX: Eliel Lopez MD [place]: St: ADM Name: MARLEN WHITLOCK [facility] : 1935 Age/S: 85/F [address] [facility] Unit #: [id number] Loc: [place], [place]: [place] [address] Acct: [id number] Dis Date: Status: ADM IN PHONE #: [phone] Exam Date: FAX #: [phone] Reason: Altered Mental Status EXAMS: CPT CODE: [id number] XR CHEST 1 V 70313 AP VIEW OF THE CHEST LOCATION: R16 CLINICAL HISTORY: Altered mental status. COMPARISON: No previo us exam available. FINDINGS: The cardiomediastinal shadow is within normal limits. The lungs are grossly clear. No appreciable pleural fluids. Degenerative bony changes are noted. No acute bony abnormality is found. IMPRESSION: No radiographic evidence of acute cardiopulmonary disease process. at 3928 Reported and signed by: Mari Virk M.D. CC: Eliel Lopez MD Technologist: BESSIE BORREGO [facility] Date/Time/By: 08/05/2020 (5493) : By: [email or web address] PAGE 1 Signed Report FAX: Eliel Lopez MD [place]: St: ADM Name: MARLEN WHITLOCK [facility] : 1935 Age/S: 85/F [address] [facility] Unit #: [id number] Loc: [place], [place]: [place] [address] Acct: [id number] Dis Date: Status: ADM IN PHONE #: [phone] Exam Date: 08/05/2020 1726 FAX #: [phone] R renetta: Altered Mental Status EXAMS: CPT CODE: [id number] XR CHEST 1 V 84180 <Continued> Orig Print D/T: S: 08/05/2020 (2156) PAGE 2 Signed NzeezlVUJA-KjF-5 (COVID-19) RNA [Presence] in Respiratory specimen by KRISTEN with probe [id number] 17:52:20 Test Item Value Reference Range Interpretation Comments SARS-CoV-2 (COVID-19) RNA Not detected Not-Detected [Presence] in Respiratory specimen by KRISTEN with probe detection (test code = 29482-3) BASIC METABOLIC [id number] 20:03:00 Test Item Value Reference Range Interpretation [...] GROSSLY HEMOLYSED---- CALLED YESICA AT 1927.CBC W/AUTO [id number] 19:26:00 Test Item Value Reference Range Interpretation [...]
[2021-01-13 04:18] LABS: Absolute Lymphocytes (CBC) 1.2 K/uL (0.7-4.9); Basophils % 0.6 % (0-1.3); Hematocrit 33.7 % (36.0-45.0); Lymphocytes % 32.9 % (15.3-44.8); MPV 8.5 fL (7.6-11.3); RBC Red Blood Cell Count 3.47 M/uL (3.86-4.86)
[2021-01-13 04:31] LABS: Protime INR 1.24
[2021-01-13 04:33] LABS: Urine Blood Negative (Negative); Urine Glucose Negative (Negative); Urine Protein Negative (Negative)
[2021-01-13 04:57] LABS: ALT/SGPT 9 U/L (12-78); AST/SGOT 11 U/L (15-37); Albumin 2.4 g/dL (3.4-5.0); Alkaline Phosphatase 66 U/L (45-117); BUN Blood Urea Nitrogen 25 mg/dL (7-18); Bicarbonate 28 mmol/L (21-32); Bilirubin Direct < 0.1 mg/dL (0-0.2); Bilirubin Total 0.4 mg/dL (0.2-1.0); Glucose Level 87 mg/dL (74-106); Potassium 2.9 mmol/L (3.5-5.1); Sodium Level 142 mmol/L (136-145); Troponin (Emerg Dept Use Only) < 0.02 ng/mL (0.0-0.045)
[2021-01-13 05:21] LABS: Urine Bacteria >50 /HPF (<20)
[2021-01-13 05:23] LABS: Urine RBC <5 /HPF (NONE SEEN); Urine Urothelial Cells <5 /HPF (NONE SEEN)
[2021-01-13] MEDS ORDERED: POTASSIUM CL SA 10 MEQ TAB PO ONE (06:19)
[2021-01-13] MEDS ORDERED: CEFTRIAXONE 1000 MG/VIAL ONE (06:20)
[2021-01-13] MEDS ORDERED: NA CHLORIDE 0.9% 100 ML ONE (06:20)
--- NOTE | 2021-01-13 06:36 | EDPHYS ---
Physician Documentation [facility] Name: Hoa Rivers Age: 85 yrs Sex: Female : 1935 Arrival Date: 01/13/2021 Time: 03:49 Bed 5 Private MD: ED Physician Shravan Norman HPI: 01/13 03:54 This 85 yrs old Female presents to ER via EMS with complaints of Fall Injury. mh7 03:54 Details of fall: The patient fell from an upright position, while standing. Onset: The mh7 symptoms/episode began/occurred today. Associated injuries: The patient sustained injury to the head, contusion. Severity of symptoms: At their worst the symptoms were mild, earlier today, in the emergency department the symptoms are unchanged. Unable to obtain HPI due to baseline dementia. Historical: - Home Meds: 03:57 divalproex 500 mg Oral TbEC 1 tab 2 times per day [Active]; donepezil 5 mg Oral tab 1 tw5 tab once daily [Active]; losartan 25 mg Oral tab 1 tab once daily [Active]; Eliquis 5 mg Oral tab 1 tab 2 times per day [Active]; risperidone 0.25 mg Oral tab 1 tabs 2 times per day [Active]; hydrochlorothiazide 25 mg Oral tab once daily [Active]; propranolol 60 mg Oral tab daily [Active]; memantine 5 mg Oral tab 1 tab 2 times per day [Active]; trazodone 50 mg Oral tab 1 tab once daily [Active]; - PMHx: 03:57 Dementia; Hypertensive disorder; Atrial fibrillation; tw5 - Immunization history: Last tetanus immunization: unknown. - Social history:: Smoking status: Patient denies any tobacco usage or history of. ROS: 03:54 Unable to obtain ROS due to baseline dementia. mh7 Exam: 03:54 Constitutional: This is a well developed, well nourished patient who is awake, alert, mh7 and in no acute distress. 03:54 Head/face: Noted is contusion, that is superficial, of the Posterior scalp, tenderness, that is mild, of the Posterior scalp. 03:54 Eyes: Pupils equal round and reactive to light, extra-ocular motions intact. Lids and mh7 lashes normal. Conjunctiva and sclera are non-icteric and not injected. Cornea within normal limits. Periorbital areas with no swelling, redness, or edema. ENT: Nares patent. No nasal discharge, no septal abnormalities noted. Tympanic membranes are normal and external auditory canals are clear. Oropharynx with no redness, swelling, or masses, exudates, or evidence of obstruction, uvula midline. Mucous membranes moist. Neck: Trachea midline, no thyromegaly or masses palpated, and no cervical lymphadenopathy. Supple, full range of motion without nuchal rigidity, or vertebral point tenderness. No Meningismus. Chest/axilla: Normal chest wall appearance and motion. Nontender with no deformity. No lesions are appreciated. Cardiovascular: Regular rate and rhythm with a normal S1 and S2. No gallops, murmurs, or rubs. Normal PMI, no JVD. No pulse deficits. Respiratory: Lungs have equal breath sounds bilaterally, clear to auscultation and percussion. No rales, rhonchi or wheezes noted. No increased work of breathing, no retractions or nasal flaring. Abdomen/GI: Soft, non-tender, with normal bowel sounds. No distension or tympany. No guarding or rebound. No evidence of tenderness throughout. Back: No spinal tenderness. No costovertebral tenderness. Full range of motion. Skin: Warm, dry with normal turgor. Normal color with no rashes, no lesions, and no evidence of cellulitis. MS/ Extremity: Pulses equal, no cyanosis. Neurovascular intact. Full, normal range of motion. 03:54 Neuro: Orientation: to person, This is baseline for patient, Mentation: is normal, Memory: unable to test, the patient has a history of dementia, Cranial nerves: no acute changes, Cerebellar function: unable to test, the patient has a history of dementia, Motor: moves all fours, Sensation: no obvious gross deficits, Gait: not tested. seizure activity, is not displayed by the patient, Abnormal movements: there are no abnormal movements. Vital Signs: 03:49 BP 125 / 65; Pulse 73; Resp 18; Temp 97.2; Pulse Ox 99% on R/A; Weight 72.57 kg; Height tw5 5 ft. 5 in. (165.10 cm); Pain 0/10; 04:00 BP 109 / 62; Pulse 72; Resp 18 S; Pulse Ox 97% on R/A; cc4 06:27 BP 102 / 56; Pulse 70; Resp 20; Pulse Ox 98% on R/A; tw5 03:49 Body Mass Index 26.63 (72.57 kg, 165.10 cm) tw5 Conway Coma Score: 03:49 Eye Response: spontaneous(4). Verbal Response: confused(4). Motor Response: obeys tw5 commands(6). Total: 14. Trauma Score (Adult): 03:49 Eye Response: spontaneous(1); Verbal Response: confused(1); Motor Response: obeys tw5 commands(2); Systolic BP: > 89 mm Hg(4); Respiratory Rate: 10 to 29 per min(4); Walker Score: 14; Trauma Score: 12 MDM: 06:32 Differential diagnosis: abrasion, closed head injury, contusion, fracture. Data [facility] reviewed: vital signs, nurses notes, EMS record, [place] [facility] records, lab test result(s), CBC, electrolytes, urinalysis. Data interpreted: Pulse oximetry: on room air is 98 %. Interpretation: normal. Counseling: I had a detailed discussion with the patient and/or guardian regarding: the historical points, exam findings, and any diagnostic results supporting the discharge/admit diagnosis, lab results, radiology results, the need for outpatient follow up, to return to the emergency department if symptoms worsen or persist or if there are any questions or concerns that arise at home. Response to treatment: the patient's symptoms have markedly improved after treatment. 06:35 Patient medically screened. [facility] 06:37 ED course: Well-appearing, no acute distress, vital signs stable, no focal neurological [facility] deficits. Patient's son is at bedside states that patient has frequent UTIs and appears to be her normal baseline. Discussed all test results and findings. He indicates patient is ready for transfer back to nursing facility. He states he will be in close contact with patient and her doctor.. 01/13 04:02 Order name: Basic Metabolic Panel; Complete Time: 04:59 7 01/13 04:02 Order name: CBC with Diff; Complete Time: :59 7 01/13 04:02 Order name: Type And Screen; Complete Time: 06:02 7 01/13 04:02 Order name: Protime (+inr); Complete Time: :59 7 01/13 04:02 Order name: Ptt, Activated; Complete Time: 04:59 [facility] 01/13 04:02 Order name: LFT's; Complete Time: 04:59 [facility] 01/13 03:52 Order name: CT Head C Spine [facility] 01/13 04:02 Order name: Troponin (emerg Dept Use Only); Complete Time: 04:59 [facility] 01/13 04:32 Order name: Urine Microscopic Only; Complete Time: 06:02 cc4 01/13 04:33 Order name: Urine Dipstick-Ancillary; Complete Time: 04:59 [facility] 01/13 05:00 Order name: Urine Culture [facility] 01/13 05:01 Order name: Urine Culture [facility] 01/13 05:19 Order name: ABO/RH no charge; Complete Time: 06:02 [facility] 01/13 04:02 Order name: Labs collected and sent; Complete Time: 04:04 [facility] 01/13 04:03 Order name: EKG; Complete Time: 04:03 [facility] 01/13 04:03 Order name: EKG - Nurse/Tech; Complete Time: 04:04 [facility] 01/13 04:03 Order name: Urine Dipstick-Ancillary (obtain specimen); Complete Time: 04:27 [facility] Administered Medications: 06:27 Drug: Potassium Chloride 40 mEq Route: PO; tw5 06:27 Drug: Potassium Chloride 20 mEq Route: PO; tw5 06:48 Follow up: Response: No adverse reaction tw5 06:32 Drug: Rocephin (cefTRIAXone) 1 grams Route: IV; Rate: per protocol; Site: right forearm;tw5 Disposition Summary: 01/13/21 06:35 Discharge Ordered [facility] Home [facility] Problem: an acute exacerbation [facility] Symptoms: have improved [facility] Condition: Stable [facility] Diagnosis - UTI/ Urinary tract infection, site not specified 7 - Hypokalemia 7 - Fall on same level, unspecified [facility] Followup: [facility] - With: Private Physician - When: 1 - 2 days - Reason: Worsening of condition, Recheck today's complaints, Continuance of care, Re-evaluation by your physician Discharge Instructions: - Discharge Summary Sheet 7 - Urinary Tract Infection, Adult, Xucy-hg-Afep 7 - Fall Prevention in the Home, Adult, Zmgr-kx-Miav 7 - Hypokalemia [facility] Forms: - Medication Reconciliation Form mh7 - Thank You Letter [facility] - Antibiotic Education [facility] - Prescription Opioid Use [facility] Prescriptions: - Cephalexin 500 mg Oral Capsule - take 1 capsule by ORAL route every 12 hours for 7 days; 14 capsule; Refills: 0, mh7 Product Selection Permitted Signatures: Dispatcher [employer] Shravan Mcintosh MD MD [facility] Kavya Brennan tw
--- NOTE | 2021-01-13 06:36 | ER ---
Nurse's Notes [facility] Name: Hoa Rivers Age: 85 yrs Sex: Female : 1935 Arrival Date: 01/13/2021 Time: 03:49 Bed 5 Private MD: Diagnosis: UTI/ Urinary tract infection, site not specified;Hypokalemia;Fall on same level, unspecified Presentation: 01/13 03:49 Chief complaint: EMS states: She was found in her room leaning against the wall. It was tw5 believed that she might have fallen and hit her head on the mini fridge in her room. She is on blood thinners so they wanted to send her here. Care prior to arrival: None. Mechanism of Injury: Fall from standing position. Trauma event details: Injury occurred in the [facility], Injury occurred: [facility] Injury occurred: January 13, 2021 Injury occurred at: 03:20. 03:49 Acuity: WILL 3 tw5 03:49 Method Of Arrival: EMS: [facility] tw5 03:56 Coronavirus screen: At this time, the client does not indicate any symptoms associated tw5 with coronavirus-19. Ebola Screen: Patient negative for fever greater than or equal to 101.5 degrees Fahrenheit, and additional compatible Ebola Virus Disease symptoms Patient denies exposure to infectious person. Patient denies travel to an Ebola-affected area in the 21 days before illness onset. Initial Sepsis Screen: Does the patient meet any 2 criteria? Altered Mental Status. Does the patient have a suspected source of infection? No. Patient's initial sepsis screen is negative. Risk Assessment: Do you want to hurt yourself or someone else? Unable to obtain. Onset of symptoms was January 13, 2021. Trauma Activation: Alert Physician: ED Physician; Name: ; Notified At: ; Arrived At: Physician: General Surgeon; Name: ; Notified At: ; Arrived At: Physician: Radiology; Name: ; Notified At: ; Arrived At: Physician: Respiratory; Name: ; Notified At: ; Arrived At: Physician: Lab; Name: ; Notified At: ; Arrived At: Trauma Activation: Alert Physician: ED Physician; Name: Dr. Norman; Notified At: 03:41; Arrived At: 03:41 Physician: General Surgeon; Name: N/A; Notified At: 03:41; Arrived At: Physician: Radiology; Name: John; Notified At: 03:41; Arrived At: 03:44 Physician: Respiratory; Name: N/A; Notified At: 03:41; Arrived At: Physician: Lab; Name: N/A; Notified At: 03:41; Arrived At: Historical: - Home Meds: 03:57 divalproex 500 mg Oral TbEC 1 tab 2 times per day [Active]; donepezil 5 mg Oral tab 1 tw5 tab once daily [Active]; losartan 25 mg Oral tab 1 tab once daily [Active]; Eliquis 5 mg Oral tab 1 tab 2 times per day [Active]; risperidone 0.25 mg Oral tab 1 tabs 2 times per day [Active]; hydrochlorothiazide 25 mg Oral tab once daily [Active]; propranolol 60 mg Oral tab daily [Active]; memantine 5 mg Oral tab 1 tab 2 times per day [Active]; trazodone 50 mg Oral tab 1 tab once daily [Active]; - PMHx: 03:57 Dementia; Hypertensive disorder; Atrial fibrillation; tw5 - Immunization history: Last tetanus immunization: unknown. - Social history:: Smoking status: Patient denies any tobacco usage or history of. Screenin:49 Abuse screen: Denies threats or abuse. Denies injuries from another. Tuberculosis tw5 screening:. Fall risk At risk due to injury, age, prior history of falls. 04:00 Nutritional screening: No deficits noted. Fall Risk Fall in past 12 months (25 points). tw5 Secondary diagnosis (15 points) IV access (20 points). Ambulatory Aid- Crutches/Cane/Walker (15 pts). Gait- Weak (10 pts.). Mental Status- Overestimates/Forgets Limitations (15 pts.). Primary Survey: 03:49 NO uncontrolled hemorrhage observed. A: The patient is alert. Airway: patent. tw5 Breathing/Chest: Respiratory pattern: regular. Circulation: Cardiac rhythm: sinus rhythm. Disability Alert. Exposure/Environment: There is no evidence of uncontrolled external bleeding. A warming method has been applied: A warm blanket has been provided to the patient. Reassessment Airway Airway Patent Breathing/Chest Respiratory pattern Regular Circulation Heart rhythm Sinus rhythm Disability Alert. Assessment: 03:44 General: Appears in no apparent distress. Behavior is calm, quiet. Pain: Denies pain. cc4 Pain: Complains of pain in back of neck Unable to use pain scale. Patient is disoriented. Oriented to person only; follows commands slowly. Neuro: Level of Consciousness is awake, alert, obeys commands, Oriented to person. Cardiovascular: Rhythm is rare to occ PACs \T\ rare PVC's. Respiratory: No deficits noted. Airway is patent Respiratory effort is even, unlabored, Respiratory pattern is regular, symmetrical. GI: No signs and/or symptoms were reported involving the gastrointestinal system. : No signs and/or symptoms were reported regarding the genitourinary system. EENT: No signs and/or symptoms were reported regarding the EENT system. Derm: Skin is intact, Bruising that is left forearm. Musculoskeletal: No deficits noted. Capillary refill < 3 seconds, Range of motion: intact in all extremities. Injury Description: Bruise sustained to left forearm. 03:49 General: Appears in no apparent distress. Behavior is quiet. Pain: Denies pain. Neuro: tw5 Level of Consciousness is awake, alert, obeys commands, Oriented to person. 04:00 General: Son at the bedside states that this is the second time she has fallen in the tw5 last couple of weeks. . Derm: Skin is intact. 04:10 Reassessment: In \T\ Out cath completed with cloudy yellow urine noted \T\ sent to lab with cc 4 dipstick completed. 04:15 Reassessment: To CT via stretcher. cc4 06:27 Reassessment: Patient appears in no apparent distress at this time. No changes from tw5 previously documented assessment. 06:41 Reassessment: Called [facility] and spoke with [facility] [employer], reports she lp1 will call patient's family for transport to facility; Will call for follow up. Vital Signs: 03:49 BP 125 / 65; Pulse 73; Resp 18; Temp 97.2; Pulse Ox 99% on R/A; Weight 72.57 kg; Height tw5 5 ft. 5 in. (165.10 cm); Pain 0/10; 04:00 BP 109 / 62; Pulse 72; Resp 18 S; Pulse Ox 97% on R/A; cc4 06:27 BP 102 / 56; Pulse 70; Resp 20; Pulse Ox 98% on R/A; tw5 03:49 Body Mass Index 26.63 (72.57 kg, 165.10 cm) tw5 Walker Coma Score: 03:49 Eye Response: spontaneous(4). Verbal Response: confused(4). Motor Response: obeys tw5 commands(6). Total: 14. Trauma Score (Adult): 03:49 Eye Response: spontaneous(1); Verbal Response: confused(1); Motor Response: obeys tw5 commands(2); Systolic BP: > 89 mm Hg(4); Respiratory Rate: 10 to 29 per min(4); Walker Score: 14; Trauma Score: 12 ED Course: 03:49 Patient arrived in ED. tw5 03:49 Shravan Norman MD is Attending Physician. 7 03:49 Patient maintains SpO2 saturation greater than 95% on room air. tw5 03:49 Patient has correct armband on for positive identification. Placed in gown. Bed in low tw5 position. Call light in reach. Side rails up X2. Adult w/ patient. EKG done, by ED staff, reviewed by Shravan Norman MD. 03:51 Triage completed. tw5 03:55 Inserted saline lock: 22 gauge in right forearm, using aseptic technique. Blood ds4 collected. 03:57 Arm band placed on right wrist. EKG completed in triage. Results shown to MD. EKG tw5 completed in triage. Results shown to MD. 04:00 desk monitor on. Pulse ox on. NIBP on. Door closed. Noise minimized. Moved to tw5 private room. Warm blanket given. Verbal reassurance given. 04:01 Thermoregulation: warm blanket given to patient. tw5 04:03 Kavya Brennan is Primary Nurse. tw5 04:26 Troponin (emerg Dept Use Only) Sent. cc4 04:26 LFT's Sent. cc4 04:26 Protime (+inr) Sent. cc4 04:26 Ptt, Activated Sent. cc4 04:26 Basic Metabolic Panel Sent. cc4 04:26 Type And Screen Sent. cc4 04:26 CT Head C Spine Sent. cc4 04:32 CT Head C Spine In Process Unspecified. EDMS 04:59 Notified ED physician of a critical lab result(s). Potassium 2.9. tw5 06:18 Urine Culture Sent. tw5 06:48 Awaiting transportation. tw5 08:39 No provider procedures requiring assistance completed. Patient did not have IV access iw during this emergency room visit. Administered Medications: 06:27 Drug: Potassium Chloride 40 mEq Route: PO; tw5 06:27 Drug: Potassium Chloride 20 mEq Route: PO; tw5 06:48 Follow up: Response: No adverse reaction tw5 06:32 Drug: Rocephin (cefTRIAXone) 1 grams Route: IV; Rate: per protocol; Site: right forearm;tw5 Intake: 03:49 PO: 0ml; Total: 0ml. tw5 Output: 03:49 Urine: 0ml; Total: 0ml. tw5 Outcome: 06:35 Discharge ordered by . [facility] 08:39 Discharged to home via wheelchair. iw 08:39 Condition: good 08:39 Patient's length of stay in the Emergency Department was greater than 2 hours. 08:39 Discharge instructions given to patient, Instructed on discharge instructions, follow iw up and referral plans. Demonstrated understanding of instructions, follow-up care, medications, Prescriptions given X 1. 08:40 Patient left the ED. iw Addendum: 01/16/2021 09:44 Addendum: Culture Results: Positive urine culture. No further action required. Bacteria i w sensitive to prescribed antibiotic. Signatures: Dispatcher [employer] EDPR Nidia York RN RN Hina Gomes RN RN lp1 Isiah Ching 4 Shravan Norman MD MD 7 Alma Rosa Lr RN RN 4 Kavya Brennan tw5 Corrections: (The following items were deleted from the chart) 01/13 04:47 04:10 Reassessment: In \T\ Out cath completed with cloudy yellow urine noted \T\ sent to cc 4 lab with dipstick completed. cc4
[2021-01-13 08:46] VITALS: TEMP 97.2
[2021-01-13 08:49] VITALS: BP 102/56; O2SAT 98
--- NOTE | 2021-01-13 14:30 | RAD REPORT ---
EXAM DESCRIPTION: CT - [id number] - 01/13/2021 6:41 am CLINICAL HISTORY: Fall COMPARISON: None. TECHNIQUE: CT HEAD AND CERVICAL SPINE WITHOUT CONTRAST on 01/13/2021 3:52 AM FOUNDATION ASSISTANT This exam was performed according to our departmental dose-optimization program, which includes autom ated exposure control, adjustment of the mA and/or kV according to patient size and/or use of iterati ve reconstruction technique. FINDINGS: Brain: There is no acute hemorrhage, mass effect or midline shift. Nicolas-white differentiat ion is preserved. There is no hydrocephalus. There is no significant volume loss for age. The calvarium is intact. Orbits and globes are unremarkable. The paranasal sinuses are clear. Mastoid air cells are clear. Cervical Spine: There is no acute fracture. Alignment is anatomic. There is mild narrowing of the C5-6 and C6-7 discs. Vertebral body heights are preserved. Soft tissue s are unremarkable. IMPRESSION: No acute postraumatic findings. Electronically signed by: Socrates Jackson MD 01/13/2021 5:10 AM FOUNDATION ASSISTANT Due to temporary technical issues with the PACS/Fluency reporting system, reports are being signed by the in house radiologist without review as a courtesy to ensure prompt reporting. The interpreting r adiologist is fully responsible for the content of the report.
== END 2021-01-13 08:40 | disposition home or self-care (01) ==
LOC: ER 03:39
DX: N39.0 Urinary tract infection, site not specified (principal); E87.6 Hypokalemia; W18.30XA Fall on same level, unspecified, initial encounter; Y93.89 Activity, other specified; Y92.9 Unspecified place or not applicable; F03.90 Unspecified dementia, unspecified severity, without behavioral disturbance, psychotic disturbance, mood disturbance, and anxiety
CPT/HCPCS: 36415; 70450; 72125; 80048; 80076; 81003; 81015; 84484; 85025; 85610; 85730; 86850; 86900; 86901; 87077; 87086; 87088; 87186; 93005; 96374; 99285